=== PATIENT | male | born 1950 | race Caucasian/White ===

== ENCOUNTER 2021-03-19 15:06 | Emergency (ER) | payer MEDICARE, MEDICAID ==
[~2021-03-19] VITALS: Ht 180.3 cm; Wt 75.0 kg
[2021-03-19 15:50] VITALS: BP 118/49
[2021-03-19] MEDS ORDERED: ACETAMINOPHEN 325 MG TABLET PO ONE (16:15)
[2021-03-19] MEDS ORDERED: NAPROXEN 250 MG TABLET PO ONE (16:15)
[2021-03-19 17:29] LABS: COVID AG,FIA SOURCE NASOPHARYNGEAL
== END 2021-03-19 19:03 | disposition home or self-care (01) ==
LOC: EMS 15:06
DX: K40.20 Bilateral inguinal hernia, without obstruction or gangrene, not specified as recurrent (principal); B34.9 Viral infection, unspecified; Z20.822 Contact with and (suspected) exposure to COVID-19
CPT/HCPCS: 99283

== ENCOUNTER 2021-03-24 05:41 | Emergency (ER) | payer MEDICARE, MEDICAID ==
[~2021-03-24] VITALS: Ht 180.3 cm; Wt 75.0 kg
[2021-03-24 05:49] VITALS: BP 133/76
[2021-03-24] MEDS: IBUPROFEN 600 MG TABLET PO ONE (06:23)
== END 2021-03-24 06:35 | disposition home or self-care (01) ==
LOC: EMS 05:42
DX: K40.90 Unilateral inguinal hernia, without obstruction or gangrene, not specified as recurrent (principal); F17.210 Nicotine dependence, cigarettes, uncomplicated; J44.9 Chronic obstructive pulmonary disease, unspecified; Z59.00 Homelessness unspecified
CPT/HCPCS: 99282; Z7502; Z7610

== ENCOUNTER 2021-04-05 16:38 | Emergency (ER) | payer MEDICARE, MEDICAID ==
[~2021-04-05] VITALS: Ht 167.6 cm; Wt 72.7 kg
[2021-04-05 16:56] VITALS: BP 138/84
[2021-04-05] MEDS ORDERED: IBUPROFEN 600 MG TABLET PO ONE (17:00)
== END 2021-04-05 19:12 | disposition home or self-care (01) ==
LOC: EMS 16:40
DX: S40.012A Contusion of left shoulder, initial encounter (principal); J44.9 Chronic obstructive pulmonary disease, unspecified; F17.210 Nicotine dependence, cigarettes, uncomplicated; Z59.00 Homelessness unspecified; W19.XXXA Unspecified fall, initial encounter; Y93.89 Activity, other specified; Y92.89 Other specified places as the place of occurrence of the external cause; Y99.8 Other external cause status
CPT/HCPCS: 99283